=== PATIENT | female | born 1980 | race Caucasian/White ===

== ENCOUNTER → 2016-11-23 | Outpatient (CLI) | payer MEDICARE, OTHER ==
[2016-11-23 13:02] LABS: BASOPHILS % (AUTO) 0 % (0-2); EOSINOPHILS # (AUTO) 0.1 10^3uL; EOSINOPHILS % (AUTO) 1 % (0-4); LYMPHOCYTES # (AUTO) 3.5 X10^3; MEAN CORPUSCULAR HEMOGLOBIN 29.3 PG (26.0-34.0); MEAN CORPUSCULAR HGB CONC 34.3 g/dL (31.0-37.0); MEAN CORPUSCULAR VOLUME 85 FL (80-100); MONOCYTES # (AUTO) 0.6 X10^3; MONOCYTES % (AUTO) 7 % (3-11); NEUTROPHILS # (AUTO) 5.4 X10^3; NEUTROPHILS % (AUTO) 56 % (51-67); PLATELET COUNT 305 10^3uL (150-450); WHITE BLOOD COUNT 9.58 10^3uL (4.0-11.0)
== END ==
LOC: LAB 12:23
PROVIDERS: ATTEND Physician Assistant Medical
DX: J30.89 Other allergic rhinitis (principal); J01.91 Acute recurrent sinusitis, unspecified; J45.30 Mild persistent asthma, uncomplicated
CPT/HCPCS: 36415; 85025; 86317; 86648; 86684; 86774

== ENCOUNTER 2017-03-16 10:45 | Day surgery (SDC) | payer MEDICARE, OTHER ==
[2017-03-16] VITALS (8 sets, daily range): BP systolic 125–172; BP diastolic 72–97
[~2017-03-16] VITALS: Ht 160 cm; Wt 104.0 kg
[~2017-03-16 10:45] MED LIST: ALBU8.5H2 INH; ARIP2TAB9 PO; AZEL137S INH; BUSP30TA2 PO; CYCL10TA45 PO; FLUO40CA PO; FLUT16SP INH; FLX20C PO; HYDR-33 PO; LACTATED RINGERS 1,000 ML IV SCH; LEVO125T6 PO; MELA1TAB15 PO; MELO-249 PO; MNTL10T PO; OMEP20CA12 PO; PNV1TABL65 PO; RANI300T4 PO; SODIUM CHLORIDE FLUSH 3 ML SYR IV SCH; TRAM-291ED PO
--- OUTSIDE RECORDS SUMMARY | 2017-03-16 10:48 | XMS REPORT | Summary of Care ---
Author Author Karolyn Pathak, Ronit Organization Unknown Address Unknown Phone Unavailable Care Team Providers Care Cupola Mechanic Name Role Phone Ronit Parr M.D. Unavailable Unavailable Jenny Jones Unavailable Unavailable Unavailable Unavailable Functional Status Name Dates Details Functional status health issues are not documented Status: Name Dates Details Cognitive status health issues are not documented Status: Problems Name Dates Details Hypercholesteremia (272.0, E78.00) Status: Active Sleep apnea (780.57, G47.30) Status: Active Thyroid disorder (246.9, E07.9) Status: Active Nasal congestion (478.19, R09.81) Status: Active Nasal septal deviation (470, J34.2) Status: Active Hypertrophy of inferior nasal turbinate (478.0, J34.3) Status: Active Hypothyroidism (244.9, E03.9) Status: Active Vitamin D deficiency (268.9, E55.9) Status: Active PTSD (post-traumatic stress disorder) (309.81, F43.10) Status: Active Anxiety (300.00, F41.9) Status: Active Acute recurrent sinusitis, unspecified location (461.9, J01.91) Status: Active Mild persistent asthma (493.90, J45.30) Status: Active Exercise-induced bronchospasm (493.81, J45.990) Status: Active GERD (gastroesophageal reflux disease) (530.81, K21.9) Status: Active Migraine (346.90, G43.909) Status: Active Desensitization to allergens (V07.1, Z51.6) Status: Active Allergic rhinitis due to animal hair or dander (477.2, J30.81) Status: Active Allergic rhinitis due to other allergen (477.8, J30.89) Status: Active Allergic reaction (995.3, T78.40XA) Status: Active Chest tightness (786.59, R07.89) Status: Active Medications Name Dates Details TraMADol HCl - 50 MG Oral Tablet Refills: 0 Start 2-Nov-2016 Active Montelukast Sodium 10 MG Oral Tablet Refills: 0 Start 16-Sep-2016 Active BusPIRone HCl - 15 MG Oral Tablet Refills: 0 Start 16-Sep-2016 Active FLUoxetine HCl - 40 MG Oral Capsule Refills: 0 Start 16-Sep-2016 Active Trimethoprim 100 MG Oral Tablet Refills: 0 Start 16-Sep-2016 Active PriLOSEC 20 MG CPDR Refills: 0 Start 16-Sep-2016 Active Synthroid 125 MCG Oral Tablet Refills: 0 Start 16-Sep-2016 Active Fish Oil 500 MG Oral Capsule Refills: 0 Start 16-Sep-2016 Active Flonase Allergy Relief 50 MCG/ACT Nasal Suspension Refills: 0 Start 16-Sep-2016 Active Claritin 10 MG Oral Capsule Refills: 0 Active PrePLUS 27-1 MG Oral Tablet Refills: 0 Active Melatonin CAPS Refills: 0 Active Promethazine HCl - 25 MG Oral Tablet Refills: 0 Active RaNITidine HCl - 300 MG Oral Capsule Refills: 0 Active Omeprazole 20 MG Oral Capsule Delayed Release Refills: 0 Active Levothyroxine Sodium 125 MCG Oral Tablet Refills: 0 Active Fluticasone Propionate 50 MCG/ACT Nasal Suspension Refills: 0 Active ProAir HFA 108 (90 Base) MCG/ACT Inhalation Aerosol Solution Refills: 0 Active Levocetirizine Dihydrochloride 5 MG Oral Tablet TAKE ONE TABLET BY MOUTH EVERY EVENING. Quantity: 1 Refills: 6 Ronit Parr M.D. Start 04-Nov-2016 End Active 30 Tablet Bottle Azelastine HCl - 0.1 % Nasal Solution 1 spray per nostril twice a day- as needed. Quantity: 1 Refills: 6 Ronit Parr M.D. Start 04-Nov-2016 Active 30 ML Bottle Breo Ellipta 100-25 MCG/INH Inhalation Aerosol Powder Breath Activated ONE INHALATION DAILY. AFTER INHALATION RINSE MOUTH WITH WATER & SPIT. Quantity: 1 Refills: 3 Ronit Parr M.D. Start 04-Nov-2016 Active 28 Aerosol Powder Breath Activated Disp Pack EpiPen 2-Jonah 0.3 MG/0.3ML Injection Solution Auto-injector To be used for allergic reaction Quantity: 1 Refills: 1 Ronit Parr M.D. Start 04-Nov-2016 Active 2 Solution Auto-injector Pen Allergy Immunotherapy 01/01; [facility]; [place], [place] Refills: 0 Ronit Parr M.D. Start 07-Jan-2017 Active Peak Flow Meter USE DIRECTED Quantity: 1 Refills: 0 Karolyn Pathak, Ronit Start 13-Jan-2017 Active Claritin 10 MG Oral Tablet Take one tablet on shot days. Quantity: 1 Refills: 1 Ronit Parr M.D. Start 13-Jan-2017 Active 90 Tablet Box Allergies and Adverse Reactions Name Dates Details Depakote (Allergy) Status: Active Erythromycin Base CPEP (Allergy) Status: Active Latex Exam Gloves MISC (Allergy) Status: Active Omnicef (Allergy) Status: Active Zofran (Allergy) Status: Active Procedures Procedure Dates Details History of Appendectomy History of Gallbladder Surgery History of Knee Surgery Procedures not documented Immunization Name Dates Details Immunizations not documented Family History Name Dates Details Family history of Unobtainable family history due to adoption (V49.89, Z78.9) Comments: Family History Status: Active Social History Name Dates Details - Status: Name Dates Details Never smoker Vital Signs Date Test Result Details 13-Jan-2017 13:35 BP Systolic 131 mm[Hg] Status: Comments: Location: ; Position: BP Diastolic 78 mm[Hg] Status: Comments: Location: ; Position: Temperature 97.7 f Status: Comments: Method: Heart Rate 87 /min Status: Comments: Location: ; Physical Findings 98 Status: Comments: O2 Saturation Results Date Description Value Details Results not documented Plan of Care Name Dates Details Planned Observations Planned Goals not documented Planned Encounters Appointment; Provider: Ronit Parr M.D. On 03-Feb-2017 11:00 Interventions Provided Medication ChangesClaritin 10 MG Oral Tablet - StartPeak Flow Meter - Start Instructions Name Dates Details Instructions not documented Encounters Appointment; Ronit Parr M.D. Encounter Diagnosis: Problem not documented On 07-Jan-2017 05:15 Appointment; Ronit Parr M.D. Encounter Diagnosis: Problem not documented On 04-Nov-2016 09:30 Appointment; Peter Ghosh M.D. Encounter Diagnosis: Problem not documented On 23-Sep-2016 08:30
[2017-03-16] MEDS ORDERED: OXYMETAZOLINE 0.05% NASAL SPRAY (AFRIN) 15 ML BTL ONE (11:02)
[2017-03-16] MEDS ORDERED: MUPIROCIN 2% OINT 22 GM (BACTROBAN) TUBE TOP ONE (11:03)
[2017-03-16] MEDS ORDERED: LIDOCAINE/EPINEPHRINE 1% 1:100,000 (XYLOCAINE) 30 ML VIAL INJ ONE (11:04)
[2017-03-16] MEDS: OXYMETAZOLINE 0.05% NASAL SPRAY (AFRIN) 15 ML BTL SCH ×3 (11:25→11:35)
[2017-03-16] MEDS ORDERED: PROPOFOL 0 ML IV ONE (12:17)
[2017-03-16] MEDS ORDERED: MIDAZOLAM 2 MG/2 ML (VERSED) VIAL ONE (12:17)
[2017-03-16] MEDS ORDERED: SUCCINYLCHOLINE 20 MG/ML 10 ML VIAL ONE (12:17)
[2017-03-16] MEDS ORDERED: ALFENTANIL 500 MCG/ML (ALFENTA) 5 ML AMP IV ONE (12:17)
[2017-03-16] MEDS ORDERED: morphine INJ 4 MG/ML 1 ML SYRINGE ONE ×2 (12:42→13:09)
[2017-03-16] MEDS ORDERED: ACETAMINOPHEN/CODEINE 300MG/30 MG (TYLENOL #3) TABLET PO PRN (13:25)
[2017-03-16] MEDS ORDERED: ACETAMINOPHEN 325 MG TAB (TYLENOL) PO PRN (13:25)
[2017-03-16] MEDS ORDERED: D5 1/2 NS W/KCL 20 MEQ/L 1,000 ML IV SCH (13:25)
[2017-03-16] MEDS ORDERED: TRIAMCINOLONE ACET 40 MG/ML (KENALOG-40) 1 ML VIAL ONE (13:39)
[2017-03-16] MEDS ORDERED: PROPOFOL 20 ML IV ONE (13:39)
[2017-03-16] MEDS ORDERED: HYPERTONIC SALINE IRRIGATION 1000 ML BTL IR SCH (21:00)
--- NOTE | 2017-03-17 09:22 | OPERATIVE REPORT ---
DATE OF OPERATION: 03/16/2017 [facility] NO.: [id number] PRE-OPERATIVE DIAGNOSES: Nasal septal deviation, nasal airway obstruction, and turbinate hypertrophy POST-OPERATIVE DIAGNOSES: Nasal septal deviation, nasal airway obstruction, and turbinate hypertrophy OPERATIVE PROCEDURE: 1. Septoplasty. 2. Left partial inferior turbinate reduction. 3. Right partial inferior turbinate reduction. SURGEON: Peter Ghosh MD ANESTHESIA: General endotracheal INDICATION: This is a 37-year-old female with a history of nasal obstruction with chronic folliculitis of the nose. OPERATIVE FINDINGS: Right side posterior nasal septal deviation, large inferior turbinates bilaterally, crusting and debris present on the anterior inferior turbinates and nasal follicle area, both left and right sides. SEPTOPLASTY: A left sided hemitransfixion incision was performed followed by elevation of a mucoperichondrial flap. The cartilage knife was used to incise the cartilage and elevate a contralateral mucoperichondrial flap followed by removal of a portion of the quadrilateral cartilage using the swivel knife. The inferior aspect of the perpendicular plate of the ethmoid was trimmed with the Ashley double action rongeur and a bone spur from posterior was removed with the Ya forceps. This allowed the flaps to swing back to the midline. Morselized cartilage were replaced between flaps and sutured with 4-0 plain gut suture in a mattress fashion. The hemitransfixion incision was closed with a 4-0 chromic suture. LEFT PARTIAL INFERIOR TURBINATE REDUCTION: The left inferior turbinate was shaved along its inferior and lateral edge using the suction microdebrider removing both soft tissue and bone, decreasing the size of the turbinate by 20%. It was then cauterized with suction electrocautery for hemostasis and then lightly lateralized with the Boies elevator. Afrin packs were then placed in this side of the nose. RIGHT PARTIAL INFERIOR TURBINATE REDUCTION: The right inferior turbinate was shaved along its inferior and lateral edge using the suction microdebrider removing both soft tissue and bone, decreasing the size of the turbinate by 20%. It was then cauterized with suction electrocautery for hemostasis and then lightly lateralized with the Boies elevator. Afrin packs were then placed in this side of the nose. Next the middle turbinates were sutured to the midline using a [id number] 4-0 Vicryl suture in a mattress fashion. This medialized the middle turbinates and opened up the nose widely. Both sides of the nose were again irrigated with saline and suctioned until clear. Afrin packs were placed along the floor of the nose and in the middle meatus. The patient was awakened and taken to the recovery room in good condition.
== END 2017-03-16 16:41 | disposition home or self-care (01) ==
LOC: ASC 10:45
PROVIDERS: ATTEND Otolaryngology
DX: J34.2 Deviated nasal septum (principal); J34.3 Hypertrophy of nasal turbinates; J45.909 Unspecified asthma, uncomplicated; K21.9 Gastro-esophageal reflux disease without esophagitis; E03.9 Hypothyroidism, unspecified; E66.01 Morbid (severe) obesity due to excess calories; Z68.41 Body mass index [BMI] 40.0-44.9, adult; G47.33 Obstructive sleep apnea (adult) (pediatric)
CPT/HCPCS: 30130; 30520; 36415; 84703; 87070; 87075; A9270; J0330; J2250; J2270; J3301; J7120